=== PATIENT | male | born 1955 | race Hispanic/Latino ===

== ENCOUNTER 2022-02-11 16:50 | Emergency (ER) | payer OTHER, MEDICARE ==
[~2022-02-11] VITALS: Ht 165.1 cm; Wt 72.6 kg
[2022-02-11 17:49] LABS: BASOPHILS % (AUTO) 0.6 % (0.0-5.0); EOSINOPHILS % (AUTO) 2.1 % (0.0-8.0); HEMATOCRIT 35.6 % (42-54); LYMPHOCYTES % (AUTO) 17.7 % (21.0-51.0); MEAN CORPUSCULAR HEMOGLOBIN 30.7 pg (27.0-33.0); MEAN CORPUSCULAR HGB CONC 33.1 g/dL (32.0-36.0); MEAN CORPUSCULAR VOLUME 92.7 fL (79-99); MONOCYTES % (AUTO) 7.5 % (3.0-13.0); NEUTROPHILS % (AUTO) 71.5 % (40.0-77.0); PLATELET COUNT (AUTO) 242 K/uL (130-400); RED BLOOD CELL COUNT(AUTO) 3.84 MIL/uL (4.50-6.20); RED CELL DISTRIBUTION WIDTH 12.9 % (11.0-15.5); WHITE BLOOD COUNT (AUTO) 8.2 K/uL (4.8-10.8)
[2022-02-11 17:52] LABS: APPEARANCE,URINE CLEAR (CLEAR); BILIRUBIN,URINE NEGATIVE (NEGATIVE); COLOR,URINE YELLOW (YELLOW); GLUCOSE, URINE (UA) NEGATIVE (NEGATIVE); KETONES,URINE NEGATIVE (NEGATIVE); LEUKOCYTE ESTERASE ,URINE NEGATIVE (NEGATIVE); NITRATE,URINE NEGATIVE (NEGATIVE); OCCULT BLOOD,URINE TRACE-INTACT (NEGATIVE); PH,URINE 5.5 (5.0-8.0); PROTEIN,URINE NEGATIVE (NEGATIVE); UROBILINOGEN,URINE 0.2 mg/dL (0.2-1.0)
[2022-02-11 18:03] LABS: POTASSIUM 3.9 mmol/L (3.5-5.1)
[2022-02-11 18:04] LABS: BACTERIA,URINE None Seen /HPF (None Seen); MUCUS,URINE Moderate LPF (None Seen); RBC,URINE 0-1 /HPF (0-1); SQUAMOUS EPITHELIAL CELL,UR None Seen /HPF (0-2); WBC,URINE None Seen /HPF (0-1)
[2022-02-11 18:05] LABS: CALCIUM OXALATE CRYSTALS,UR Many /LPF (None Seen)
[2022-02-11 18:18] LABS: ALBUMIN 3.8 g/dL (3.5-5.0); TOTAL PROTEIN, SERUM 7.3 g/dL (6.0-8.3)
[2022-02-11] MEDS ORDERED: IOHEXOL 350 MG/ML 100ML INFUS..BTL IV ONE (18:26)
[2022-02-11] MEDS: 0.9%NACL 1000ML 1,000 ML IV ONE (18:53)
[2022-02-11] MEDS: MORPHINE 4 MG SYG IVP ONE (18:54)
[2022-02-11] MEDS: FAMOTIDINE 20MG VIAL IV ONE (18:54)
[2022-02-11] MEDS: ONDANSETRON 4MG INJ IVP ONE (18:54)
[2022-02-11] MEDS ORDERED: POLY17PO4 PO (19:44)
[2022-02-11] MEDS ORDERED: PANT40TA PO (19:44)
[2022-02-11 19:54] VITALS: BP 124/78
== END 2022-02-11 19:59 | disposition home or self-care (01) ==
LOC: EDH 16:50
DX: K29.70 Gastritis, unspecified, without bleeding (principal); E78.00 Pure hypercholesterolemia, unspecified
CPT/HCPCS: 99285; 74177; 96374; 96375; 96361; 82270; 84484; 80053; 83690; 85025; 81001; 36415; 93005; J3490; J7030; J2405; J2270 ×2; Q9967

== ENCOUNTER 2023-09-26 12:59 | Emergency (ER) | payer MEDICARE, OTHER ==
[~2023-09-26] VITALS: Ht 165.1 cm; Wt 72.6 kg
[~2023-09-26 12:59] MED LIST: PANT40TA PO; POLY17PO4 PO
[2023-09-26 13:06] VITALS: BP 120/79; PULSE 77; RESP 16
== END 2023-09-26 15:03 | disposition left against medical advice (07) ==
LOC: EDH 12:59
DX: S30.811A Abrasion of abdominal wall, initial encounter (principal); Z53.21 Procedure and treatment not carried out due to patient leaving prior to being seen by health care provider; X58.XXXA Exposure to other specified factors, initial encounter; Y93.9 Activity, unspecified; Y92.89 Other specified places as the place of occurrence of the external cause; Y99.8 Other external cause status
CPT/HCPCS: 99281

== ENCOUNTER → 2025-04-01 | Outpatient (CLI) | payer OTHER, MEDICARE ==
[~2025-04-01] MED LIST changes: +IOHEXOL 350 MG/ML 100ML INFUS..BTL IV ONE
--- NOTE | 2025-04-02 09:44 | HMCIMG ---
EXAM: CT Chest with and without Intravenous Contrast. CLINICAL HISTORY: Nicotine dependence, unspecified, uncomplicated TECHNIQUE: Axial computed tomography images of the chest with and without intravenous contrast. CONTRAST: Yes. COMPARISON: None provided. FINDINGS: LUNGS: The lungs appear essentially clear. No pulmonary mass. No abnormal enhancing pulmonary nodule. PLEURAL SPACES: No evidence of pneumothorax. No pleural effusion. HEART: No cardiomegaly. No significant pericardial effusion. LYMPH NODES: No lymphadenopathy is evident. BONES: Degenerative changes in the visualized spine. No focal osseous abnormality or acute fracture. UPPER ABDOMEN: The upper abdominal solid organs are unremarkable. IMPRESSION: 1. No acute intrathoracic findings. 2. No pulmonary nodules. LUNG RADS 1: Continue annual screening with LDCT. /[place]
== END | disposition home or self-care (01) ==
LOC: RAH 10:17
PROVIDERS: ATTEND Family Medicine
DX: Z12.2 Encounter for screening for malignant neoplasm of respiratory organs (principal); M47.816 Spondylosis without myelopathy or radiculopathy, lumbar region; F17.200 Nicotine dependence, unspecified, uncomplicated
CPT/HCPCS: 71270; Q9967

== ENCOUNTER 2025-04-03 16:57 | Emergency (ER) | payer OTHER, MEDICARE ==
[~2025-04-03] VITALS: Ht 154.9 cm; Wt 73.5 kg
[~2025-04-03 16:57] MED LIST changes: -IOHEXOL 350 MG/ML 100ML INFUS..BTL IV ONE
[2025-04-03] MEDS ORDERED: CLINDAMYCIN IVPB 600MG/50ML 50 ML IV SCH (17:03)
--- NOTE | 2025-04-03 17:07 | ERN ---
ED Note History of Present Illness Stated Complaint: INSECT BITE TO RT LOWER EXTREMITY Chief Complaint: Cellulitis Time Seen by MD: 17:00 Dictation: PATIENT IS A 69-YEAR-OLD MALE HERE WITH COMPLAINTS OF HAVING A SWOLLEN AREA WITH A ERYTHEMA TO THE LATERAL ASPECT OF THE RIGHT ANKLE HE HAS HAD FOR SEVERAL DAYS. HE SAID IT STARTED OUT INSECT BITE SAW HIS DOCTOR YESTERDAY WHO GAVE HIM A SHOT OF ROCEPHIN AND PUT HIM ON [id number] B.I.D.. HE TO TWO TABLETS YESTERDAY AND ONE TODAY AND CAME IN BECAUSE HE FEELS LIKE IT IS NOT GETTING ANY BETTER. HE DENIES FEVER CHILLS NAUSEA VOMITING SAID HE IS NOT A DIABETIC. Allergies: Coded Allergies: No Known Allergies (Unverified Allergy, Unknown, 02/11/22) Home Meds Active Scripts Pantoprazole Sodium (Protonix) 40 Mg Tablet.dr, 40 MG PO DAILY, #30 TAB Prov:FITTING,JADA MURPHYP 02/11/22 Polyethylene Glycol 3350 (Miralax) 17 Gm Powd.pack, 17 GM PO DAILY, #1 CANISTER Prov:FITTING,JADA GLASS BLOCK INSTALLER 02/11/22 Past Medical History Past Medical History: High Cholesterol Surgical History: None RN Note Reviewed/Agreed w/PFSH: Yes Review of System Dictation CONSTITUTIONAL: NEGATIVE EXCEPT FOR HPI HEAD/FACE: NEGATIVE EXCEPT FOR HPI EENT: NEGATIVE EXCEPT FOR HPI RESPIRATORY: NEGATIVE EXCEPT FOR HPI GASTROINTESTINAL/ABDOMINAL: NEGATIVE EXCEPT FOR HPI GENITOURINARY: NEGATIVE EXCEPT FOR HPI MUSCULOSKELETAL: NEGATIVE EXCEPT FOR HPI INTEGUMENTARY: NEGATIVE EXCEPT FOR HPI RIGHT LATERAL ANKLE ERYTHEMA WITH A TENDER LESION NEUROLOGICAL/PSYCH: NEGATIVE EXCEPT FOR HPI HEMATOLOGIC/LYMPHATIC: NEGATIVE EXCEPT FOR HPI ALL SYSTEMS NEGATIVE, EXCEPT NOTED ABOVE. 13 POINT REVIEW OF SYSTEMS ASSESSED AND ALL NEGATIVE EXCEPT FOR ABOVE. Initial Vital Sign VS Vital Signs Date Time Temp Pulse Resp B/P (MAP) Pulse Ox O2 Delivery O2 Flow Rate FiO2 04/03/25 16:59 98.6 66 20 136/88 95 Room Air Physical Exam Dictation VITAL SIGNS REVIEWED GENERAL APPEARANCE: ALERT, ORIENTED X 3, MILD ACUTE DISTRESS, WELL DEVELOPED, NOURISHED. OBESE HEAD AND FACE: NON-TRAUMATIC. EYES: PERRL, PINK CONJUNCTIVAS, EYELID NO TRAUMA, ANTERIOR CHAMBER WITH ARCUS SENILIS. EARS: PINNAS INTACT AND NO SIGNS OF TRAUMA OR ERYTHEMA EAR CANALS CLEAR AND NO DISCHARGE TM NO ERYTHEMA NOSE: NO DISCHARGE, NO BLEEDING. OROPHARYNX: MOUTH NORMAL, TONGUE PINK, PHARYNX CLEAR,NO ERYTHEMA, TONSILS NO EXUDATES, NO ABSCESSES NOTED, MUCOUS MEMBRANE MOIST NECK: SUPPLE, NON-TENDER, NO THYROMEGALY, NO MASSES, NO JVD, NO BRUITS BREAST:DEFERRED CHEST:NO TENDERNESS, NO CREPITUS, NO PARADOXICAL MOVEMENT, NO RETRACTIONS LUNGS:CLEAR, WELL-VENTILATED, SYMMETRIC, NO RALES, NO WHEEZING, NO RHONCHI, NO STRIDOR, GOOD BREATH SOUNDS BILATERALLY HEART: REGULAR RATE, REGULAR RHYTHM, NO MURMUR, NO GALLOPS VASCULAR: NO PERIPHERAL EDEMA, ABDOMEN: SOFT, POSITIVE BOWEL SOUNDS, NONDISTENDED, NO GUARDING, NONTENDER, NO REBOUND, NO MASSES NO HEPATOMEGALY, NO SPLENOMEGALY, NO ARANA'S SIGN, NO HERNIAS. RECTAL: DEFERRED GENITAL: DEFERRED NEUROLOGICAL: NORMAL SPEECH, MOTOR FUNCTION INTACT, SENSORY FUNCTION INTACT MUSCULOSKELETAL: NECK NONTENDER, FULL RANGE OF MOTION, BACK NONTENDER, FULL RANGE OF MOTION, EXTREMITIES: NONTENDER, FULL RANGE OF MOTION SKIN: COLOR PINK, ERYTHEMATOUS LESION TO LATERAL ASPECT OF RIGHT ANKLE DISTALLY. RAISED NO FLUCTUANCE NO INDURATION LYMPHATIC: DEFERRED Results (Laboratory/Radiology) Laboratory/Radiology Laboratory Tests Test 04/03/25 17:13 White Blood Count 7.8 K/uL (4.8-10.8) Red Blood Count 4.86 MIL/uL (4.50-6.20) Hemoglobin 15.2 g/dL (14.0-18.0) Hematocrit 45.6 % (42-54) Mean Corpuscular Volume 93.8 fL (79-99) Mean Corpuscular Hemoglobin 31.3 pg (27.0-33.0) Mean Corpuscular Hemoglobin Concent 33.3 g/dL (32.0-36.0) Red Cell Distribution Width 13.2 % (11.0-15.5) Platelet Count 225 K/uL (130-400) Mean Platelet Volume 9.6 fL (7.5-10.5) Immature Granulocyte % (Auto) 0.4 % (0-1) Neutrophils (%) (Auto) 67.3 % (40.0-77.0) Lymphocytes (%) (Auto) 21.0 % (21.0-51.0) Monocytes (%) (Auto) 7.9 % (3.0-13.0) Eosinophils (%) (Auto) 2.9 % (0.0-8.0) Basophils (%) (Auto) 0.5 % (0.0-5.0) Neutrophils # (Auto) 5.2 K/uL (1.8-7.7) Lymphocytes # (Auto) 1.6 K/uL (1.0-4.8) Monocytes # (Auto) 0.6 K/uL (0.1-1.0) Eosinophils # (Auto) 0.23 K/uL (0.00-0.70) Basophils # (Auto) 0.04 K/uL (0.00-0.20) Absolute Immature Granulocyte (auto 0.03 K/uL (0-1) Nucleated Red Blood Cells 0.0 % (0.0-0.19) Sodium Level 139 mmol/L (136-145) Potassium Level 3.9 mmol/L (3.5-5.1) Chloride Level 104 mmol/L (101-111) Carbon Dioxide Level 26 mmol/L (21-32) Blood Urea Nitrogen 13 mg/dL (7-18) Creatinine 0.7 mg/dL (0.5-1.3) Glomerular Filtration Rate Calc 100 mL/min (>90) Random Glucose 103 mg/dL (70-105) Lactic Acid Level 1.2 mmol/L (0.8-2.5) Total Calcium 8.7 mg/dL (8.5-10.1) 1750/right leg ultrasound demonstrates a 1.5 x 0.5 x 1.6 cm subcu phlegm on Labs Reviewed?: Yes ED Course ED Course Orders Procedure Category Date Status Time Blood Cult GAMAL 04/03/25 Logged 17:03 Lactic Acid LAB 04/03/25 Complete 17:03 Cbc With Differential LAB 04/03/25 Complete 17:03 Ketorolac PHA 04/03/25 In Process Tromethamine 30mg/Ml 17:30 Basic Metabolic Panel LAB 04/03/25 Complete 17:03 Clindamycin Ivpb PHA 04/03/25 In Process 600mg/50ml (Cleocin 17:03 Us Soft Tissue Lower US 04/03/25 Taken Extremity 17:07 Current Medications Medications (Trade) Dose Ordered Sig/Mireille Route PRN Reason Start Time Stop Time Status Last Admin Dose Admin Clindamycin HCl/ Dextrose 50 ml @ 100 mls/hr ONCE IV 04/03/25 17:03 04/03/25 20:30 Ketorolac Tromethamine (toRADol) 30 mg ONCE IVP 04/03/25 17:30 04/03/25 20:30 04/03/25 17:47 Vital Signs Date Time Temp Pulse Resp B/P (MAP) Pulse Ox O2 Delivery O2 Flow Rate FiO2 04/03/25 16:59 98.6 66 20 136/88 95 Room Air 1755/patient has a normal white count lactic acid 1.2 and there was a subcutaneous flame on only. No abscess to drain Patient will be discharged home to continue Augmentin Warm compresses to area See his doctor next week Medical Decision Making MDM MDM: Differential diagnosis: Abscess/cellulitis/electrolyte imbalance/dehydration/sepsis. Rationale: Tests considered and ordered secondary to shared decision making include: Ultrasounds that is labs Previous outside records reviewed: Old ER visits. Risk of complication and/or morbidity or mortality of patient management: None Medications-Per medication reconciliation Need for hospitalization: Patient does not meet criteria for hospitalization. None Need for emergency major/minor surgery: No There are no social concerns with this patient. Prescription drug management none continue Augmentin Prescriptions will include symptomatic care Patient's prior external medical records from other ER visits were reviewed by me as indicated. Prior testing and results from previous visits were reviewed. Prior tests were taken into account with medical decision making and resource utilization, independent historian/historians were used to obtain complete medical history. I independently interpreted the test that were performed, results were reviewed by me and considered findings on radiology if ordered. Medical management and examination interpretation discussions were had by me with other qualified healthcare professionals as indicated for the patient's care. DX & DISP Disposition: Discharge Departure Impression: Primary Impression: Infected insect bite of right lower extremity Condition: Stable Additional Instructions: Follow-up with primary care provider in 1 to 2 days. Take medications as directed here in the emergency room. Okay to continue home medications unless otherwise discussed during your visit in the emergency room today. Return to your nearest emergency room if symptoms worsen or if there is no improvement. Call 911 if you need immediate assistance. Take Tylenol or Motrin [id number] as needed and if no contraindications are present. Increase oral hydration. A wound culture or urine culture was ordered here in the emergency room department please follow-up with primary care provider and advise them to get repeat ports from our facility. If you had any Miguel Angel wrap/splints that were applied here, please do not remove them until you see your primary care or specialty. Continue Augmentin as directed by your doctor until gone. Warm compresses to area three to 4 times a day. See your primary care doctor for follow up in 2-3 days. Referrals: KEATON TREJO M.D. (PCP) Time of Disposition: 17:55 I have reviewed the case, and I agree with, Diagnosis and Plan JENNYFER ALVAREZ NP Apr 03, 2025 17:07
[2025-04-03 17:19] LABS: IMMATURE GRANULOCYTE ABSOLUTE 0.03 K/uL (0-1); NUCLEATED RED BLOOD CELLS 0.0 % (0.0-0.19); PLATELET COUNT (AUTO) 225 K/uL (130-400); RED BLOOD CELL COUNT(AUTO) 4.86 MIL/uL (4.50-6.20); RED CELL DISTRIBUTION WIDTH 13.2 % (11.0-15.5); WHITE BLOOD COUNT (AUTO) 7.8 K/uL (4.8-10.8)
[2025-04-03 17:30] LABS: CREATININE 0.7 mg/dL (0.5-1.3); GLOMERULAR FILTR. RATE CALC 100.0 mL/min (>90); GLUCOSE,RANDOM 103.0 mg/dL (70-105); SODIUM SERUM 139.0 mmol/L (136-145); UREA NITROGEN, BLOOD 13.0 mg/dL (7-18)
[2025-04-03 18:46] VITALS: BP 131/80; PULSE 68; RESP 20; TEMP 98.4; O2SAT 96
--- NOTE | 2025-04-03 18:50 | HMCIMG ---
EXAM: Ultrasound examination, right lateral ankle. CLINICAL HISTORY: Tenderness and swelling of the right lateral ankle. Rule out abscess. TECHNIQUE: Real-time ultrasound examination of the right lateral ankle performed with image documentation. COMPARISON: None provided. FINDINGS: A 1.5 x 0.5 x 1.6 cm ill-defined hypoechoic lesion is seen in the lateral aspect of the right ankle, with increased color flow and mild surrounding inflammatory changes. IMPRESSION: 1. 1.5 x 0.5 x 1.6 cm hypoechoic lesion in the lateral right ankle with increased vascularity and surrounding inflammation, concerning for abscess. /[place]
== END 2025-04-03 19:06 | disposition home or self-care (01) ==
LOC: EDH 16:57
DX: S80.861A Insect bite (nonvenomous), right lower leg, initial encounter (principal); E78.00 Pure hypercholesterolemia, unspecified; Z79.899 Other long term (current) drug therapy; W57.XXXA Bitten or stung by nonvenomous insect and other nonvenomous arthropods, initial encounter
CPT/HCPCS: 99285; 96365; 96375; 80048; 85025; 87040 ×2; 83605; 36415; 76882; J1885; J0696; J3490

== ENCOUNTER 2025-04-06 11:15 | Emergency (ER) | payer OTHER, MEDICARE ==
[~2025-04-06] VITALS: Ht 154.9 cm; Wt 78.0 kg
[2025-04-06] MEDS: LIDOCAINE HCL 1% 20 ML VIAL INJ STA (12:02)
[2025-04-06] MEDS ORDERED: SULF1TAB42 PO (12:46)
--- NOTE | 2025-04-06 12:48 | ERN ---
ED Note History of Present Illness Stated Complaint: SPIDER BITE Chief Complaint: Insect Bite Time Seen by MD: 11:27 Time Seen by Midlevel: 11:30 Dictation: 69-year-old male insect bite to the right ankle for 2 weeks. Pt is already taking Augmentin. States feels is getting worse and states it is getting more swollen. Denies any fever, chills, n/v. Allergies: Coded Allergies: No Known Allergies (Unverified Allergy, Unknown, 02/11/22) Home Meds Active Scripts Pantoprazole Sodium (Protonix) 40 Mg Tablet.dr, 40 MG PO DAILY, #30 TAB Prov:FITTINGJADA BUSINESS PROCESS MODELER 02/11/22 Polyethylene Glycol 3350 (Miralax) 17 Gm Powd.pack, 17 GM PO DAILY, #1 CANISTER Prov:FITTINGJADA BUSINESS PROCESS MODELER 02/11/22 Past Medical History Past Medical History: No Pertinent History, High Cholesterol Surgical History: None Review of System Dictation Constitutional: Negative for fever,chills, and weight loss Eyes: Negative for injury, pain,redness, and discharge ENT: Negative for injury,pain or swelling Cardiovascular: Negative for chest pain, palpitations, and edema Respiratory: Negative for shortness of breath, cough, and wheezing, Abdomen/GI: Negative for abdominal pain, nausea, vomiting, diarrhea, and constipation Back: Negative for injury and pain : Negative for injury, bleeding and discharge MS/Extremity: Negative for injury and deformity Skin: Negative for rash, and discoloration, wound to the right ankle Neuro: Negative for headache, weakness, numbness, tingling, and seizure Psych: Negative for suicide ideation, homicidal ideation, and hallucinations Review of Systems: was completed Initial Vital Sign VS Vital Signs Date Time Temp Pulse Resp B/P (MAP) Pulse Ox O2 Delivery O2 Flow Rate FiO2 04/06/25 11:24 98.2 72 18 146/83 97 04/06/25 11:34 Room Air* 0 21 Physical Exam Dictation General: awake, alert, NAD Head/Face: Normocephalic, atraumatic Eyes: PERRL, EOMI, vision at baseline ENT: oral cavity clear, TMs clear, no signs of infection Neck: Trachea midline, supple, no nuchal rigidity Cardiovascular: RRR, normal S1/S2, No MRGs, no JVD Respiratory: CTAB, no respiratory distress, No rales or wheezes Abdomen: Soft, non-tender, non-distended, normal bowel sounds, no guarding or rebound. Skin: Warm, dry, normal turgor, no rash, raised erythematous area noted to the right lateral ankle, with minimal fluctuance. MS/Extremity: Pulses equal, no cyanosis, neurovascular intact, FROM Neuro: COAx4, GCS 15, strength 5/5, CN 2-12 intact, normal cerebellar exam, normal gait, Psych: Normal behavior, mood, and affect normal ED Course ED Course Orders Procedure Category Date Status Time Lidocaine Hcl 1% 20ml PHA 04/06/25 Complete Vial (Lidocaine Hc 11:55 Current Medications Medications (Trade) Dose Ordered Sig/Mireille Route PRN Reason Start Time Stop Time Status Last Admin Dose Admin Lidocaine HCl (Lidocaine HCl 1% 20ml Vial) ONCE STAT INJ 04/06/25 11:55 04/06/25 11:58 DC 04/06/25 12:02 Vital Signs Date Time Temp Pulse Resp B/P (MAP) Pulse Ox O2 Delivery O2 Flow Rate FiO2 04/06/25 11:34 98.2 72 18 146/83 97 Room Air* 0 21 04/06/25 11:24 98.2 72 18 146/83 97 Medical Decision Making MDM MDM: 69-year-old male insect bite to the right ankle for 2 weeks. Pt is already taking Augmentin. States feels is getting worse and states it is getting more swollen. Denies any fever, chills, n/v. See I and D note for procedure. Change patient's antibiotic from Augmentin to Bactrim. Educated to keep an eye on the wound and redness to follow up with PCP in 1-2 days. Educated on signs and symptoms of when to return back to the ER. Patient verbalized understanding, answered all questions. Differential diagnosis: Cellulitis, abscess, Rationale: Tests considered and ordered secondary to shared decision making include: Previous outside records reviewed: Old ER visits. Risk of complication and/or morbidity or mortality of patient management: None Medications-Per medication reconciliation Need for hospitalization: Patient does not meet criteria for hospitalization. Need for emergency major/minor surgery: No There are no social concerns with this patient. Prescription drug management Prescriptions will include symptomatic care Patient's prior external medical records from other ER visits were reviewed by me as indicated. Prior testing and results from previous visits were reviewed. Prior tests were taken into account with medical decision making and resource utilization, independent historian/historians were used to obtain complete medical history. I independently interpreted the test that were performed, results were reviewed by me and considered findings on radiology if ordered. Medical management and examination interpretation discussions were had by me with other qualified healthcare professionals as indicated for the patient's care. Procedure Blade Size: 11 Progress 5 cc of lidocaine infiltrated incision made with # 11 blade. small amount of serosanguineous. no packing DX & DISP Disposition: Discharge Departure Impression: Primary Impression: Infected insect bite of right lower extremity Condition: Stable Scripts Sulfamethoxazole/Trimethoprim (Bactrim Ds Tablet) 800 Mg-160 Mg Tablet 1 TAB PO BID for 7 Days, #14 TAB 0 Refills Prov: CANDELARIA CHACKO NP 04/06/25 Additional Instructions: Follow up with your PCP in 1-2 days. Change the antibiotic to the 1-year-old prescribed. You can do warm compresses to encourage drainage. Return to the hospital if the redness is worse and if you develop any fevers, nausea vomiting or diarrhea. Referrals: KEATON TREJO M.D. (PCP) Time of Disposition: 12:46 I have reviewed the case, and I agree with, Diagnosis and Plan CANDELARIA CHACKO NP Apr 06, 2025 12:48
[2025-04-06 12:50] VITALS: BP 138/87; PULSE 62; RESP 18; TEMP 98.2; O2SAT 97
== END 2025-04-06 12:56 | disposition home or self-care (01) ==
LOC: EDH 11:15
DX: S80.861A Insect bite (nonvenomous), right lower leg, initial encounter (principal); L08.9 Local infection of the skin and subcutaneous tissue, unspecified; Z79.899 Other long term (current) drug therapy; W57.XXXA Bitten or stung by nonvenomous insect and other nonvenomous arthropods, initial encounter; Y93.89 Activity, other specified; Y92.89 Other specified places as the place of occurrence of the external cause; Y99.8 Other external cause status
CPT/HCPCS: 10060; 99283